=== PATIENT | female | born 1935 | race Hispanic/Latino ===

== ENCOUNTER 2017-05-14 18:42 | Emergency (ER) | payer OTHER ==
[2017-05-14 20:35] LABS: Urine Blood TRACE (NEG); Urine Glucose NEGATIVE (NEG); Urine Protein NEGATIVE (NEG); Urine pH 6.5 (5.0-7.0)
--- NOTE | 2017-05-14 20:39 | ER ---
Nurse's Notes [facility] Name: Jeanette Maloney Age: 82 yrs Sex: Female : 1935 Arrival Date: 05/14/2017 Time: 18:45 Bed 25 Private MD: Diagnosis: Rash and other nonspecific skin eruption-Face;Cough Presentation: 05/14 18:50 Presenting complaint: Patient states: Reports chills since yesterday and woke up with aj rash to face this am. Transition of care: patient was not received from another setting of care. Onset of symptoms was May 14, 2017. Care prior to arrival: None. 18:50 Method Of Arrival: Ambulatory aj 18:50 Acuity: MEAGHAN 3 aj Triage Assessment: 18:54 General: Appears in no apparent distress. comfortable, Behavior is calm, cooperative, aj appropriate for age. Pain: Denies pain. EENT: No signs and/or symptoms were reported regarding the EENT system. Neuro: Level of Consciousness is awake, alert, obeys commands, Oriented to person, place, time, situation. Respiratory: Reports cough that is Airway is patent Respiratory effort is even, unlabored, Respiratory pattern is regular, symmetrical. Derm: Skin is intact, is healthy with good turgor, Skin is pink, warm \T\ dry. normal, Rash noted that is on face. Historical: - Allergies: 18:54 Codeine; aj - Home Meds: 18:54 pravastatin 40 mg oral tab 1 tab once daily [Active]; lisinopril-hydrochlorothiazide aj 20-25 mg oral tab 1 tab once daily [Active]; glimepiride 2 mg Oral tab 1 tab once daily [Active]; metoprolol tartrate 25 mg Oral tab 1 tab 2 times per day [Active]; gabapentin 300 mg oral cap 1 cap 3 times per day [Active]; tramadol 50 mg Oral tab twice a day [Active]; desloratadine 5 mg oral TbDL 1 tab once daily [Active]; aspirin 325 mg Oral tab 1 tab once daily [Active]; - PMHx: 18:54 Hyperlipidemia; Hypertension; Diabetes - NIDDM; aj - PSHx: 18:54 Hysterectomy; aj - Immunization history:: Adult Immunizations up to date. - Social history:: Smoking status: Patient/guardian denies using tobacco. Screenin:20 Abuse screen: Denies threats or abuse. Denies injuries from another. Nutritional kr2 screening: No deficits noted. Tuberculosis screening: No symptoms or risk factors identified. Fall Risk None identified. Assessment: 19:20 General: Appears in no apparent distress. comfortable, well groomed, well developed, kr2 well nourished, Behavior is calm, cooperative, appropriate for age. Pain: Denies pain. Neuro: Level of Consciousness is awake, alert, obeys commands, Oriented to person, place, time, situation. Cardiovascular: Capillary refill < 3 seconds in bilateral fingers Patient's skin is warm and dry. Respiratory: Airway is patent Respiratory effort is even, unlabored, Respiratory pattern is regular, symmetrical. Respiratory: Reports cough that is non-productive. GI: Abdomen is flat, non-distended. : No signs and/or symptoms were reported regarding the genitourinary system. EENT: Nares are clear bilaterally Oral mucosa is moist. Derm: Skin is intact, is healthy with good turgor, Skin is pink, warm \T\ dry. Derm: Rash noted that is red, on face. Musculoskeletal: Circulation, motion, and sensation intact. Vital Signs: 18:54 BP 172 / 69; Pulse 116; Resp 19; Temp 98.9; Pulse Ox 96% on R/A; Weight 81.65 kg; aj Height 4 ft. 11 in. (152 cm); 20:49 BP 142 / 78; Pulse 102; Resp 16; Pulse Ox 97% on R/A; kr2 18:54 Body Mass Index 35.34 (81.65 kg, 152 cm) ED Course: 18:45 Patient arrived in ED. as 18:51 Triage completed. 18:54 Arm band placed on left wrist. Patient placed in an exam room. 18:56 Breezy Fitzpatrick PA is PHCP. 18:57 Anival Aviles MD is Attending Physician. 19:11 Kristina Durham RN is Primary Nurse. kr2 19:20 Flu and/or RSV swab sent to lab. Strep swab sent to lab. kr2 19:30 Patient has correct armband on for positive identification. Placed in gown. Bed in low kr2 position. Call light in reach. Side rails up X 1. Pulse ox on. NIBP on. Door closed. Warm blanket given. Head of bed elevated. 19:46 Patient moved to radiology via wheelchair. ml 19:48 X-ray completed. Patient tolerated procedure well. ml 19:49 XRAY Chest Pa And Lat (2 Views) In Process Unspecified. EDMS 20:48 No provider procedures requiring assistance completed. Patient did not have IV access kr2 during this emergency room visit. Administered Medications: No medications were administered Point of Care Testing: Blood Glucose: 19:18 Blood Glucose: 135 mg/dL; kr2 Ranges: Outcome: 20:38 Discharge ordered by MD. cp 20:48 Discharged to home ambulatory, with family. kr2 20:48 Condition: good 20:48 Discharge instructions given to patient, Instructed on discharge instructions, follow up and referral plans. medication usage, Demonstrated understanding of instructions, follow-up care, medications, Prescriptions given X 2. 20:49 Patient left the ED. kr2 Signatures: Dispatcher [employer] EDMS Valarie Matta, RACHELE RN Marli Gan Melissa ml Breezy Fitzpatrick, Kristina Wright cp RN RN kr2
--- NOTE | 2017-05-14 20:39 | EDPHYS ---
Physician Documentation [facility] Name: Jeanette Maloney Age: 82 yrs Sex: Female : 1935 Arrival Date: 05/14/2017 Time: 18:45 Bed 25 Private MD: ED Physician Anival Aviles HPI: 05/14 19:00 This 82 yrs old Female presents to ER via Ambulatory with complaints of Fever, cp Rash. 19:00 The patient reports fever, not measured (subjective). cp Historical: - Allergies: 18:54 Codeine; aj - Home Meds: 18:54 pravastatin 40 mg oral tab 1 tab once daily [Active]; lisinopril-hydrochlorothiazide aj 20-25 mg oral tab 1 tab once daily [Active]; glimepiride 2 mg Oral tab 1 tab once daily [Active]; metoprolol tartrate 25 mg Oral tab 1 tab 2 times per day [Active]; gabapentin 300 mg oral cap 1 cap 3 times per day [Active]; tramadol 50 mg Oral tab twice a day [Active]; desloratadine 5 mg oral TbDL 1 tab once daily [Active]; aspirin 325 mg Oral tab 1 tab once daily [Active]; - PMHx: 18:54 Hyperlipidemia; Hypertension; Diabetes - NIDDM; aj - PSHx: 18:54 Hysterectomy; aj - Immunization history:: Adult Immunizations up to date. - Social history:: Smoking status: Patient/guardian denies using tobacco. ROS: 19:05 Constitutional: Negative for body aches, chills, fever, poor PO intake. cp 19:05 Eyes: Negative for injury, pain, redness, and discharge. cp 19:05 ENT: Positive for sore throat, Negative for drainage from ear(s), ear pain, difficulty swallowing, difficulty handling secretions. 19:05 Cardiovascular: Negative for chest pain, edema, palpitations. 19:05 Respiratory: Positive for cough, Negative for shortness of breath, wheezing. 19:05 Abdomen/GI: Negative for abdominal pain, nausea, vomiting, and diarrhea, black/tarry stool, rectal bleeding. 19:05 Back: Negative for pain at rest, pain with movement, radiated pain. 19:05 Skin: Positive for rash, of the face. 19:05 Neuro: Negative for altered mental status, headache, weakness. 19:05 All other systems are negative. Exam: 19:12 Constitutional: The patient appears in no acute distress, alert, awake, cp non-diaphoretic, non-toxic, well developed, well nourished. 19:12 Head/face: Exam is negative for obvious evidence of injury or deformity, swelling, cp Noted is rash, that is urticarial. 19:12 Eyes: Periorbital structures: appear normal, Pupils: equal, round, and reactive to light and accomodation, Extraocular movements: intact throughout, Conjunctiva: normal, no exudate, no injection, Sclera: no appreciated abnormality, Lids and lashes: appear normal, bilaterally. 19:12 ENT: External ear(s): are unremarkable, Ear canal(s): are normal, clear, TM's: dullness, bilaterally, Nose: is normal, Mouth: Lips: moist, Oral mucosa: moist, Posterior pharynx: Airway: no evidence of obstruction, patent, Tonsils: no enlargement, no exudate, Uvula: midline, swelling, is not appreciated, erythema, that is mild, exudate, is not appreciated, Voice: is normal. 19:12 Neck: ROM/movement: is normal, is supple, without pain, no range of motions limitations, no nuchal rigidity. 19:12 Chest/axilla: Inspection: normal, Palpation: is normal, no crepitus, no tenderness. 19:12 Cardiovascular: Rate: tachycardic, Rhythm: regular, Edema: is not appreciated, JVD: is not appreciated. 19:12 Respiratory: the patient does not display signs of respiratory distress, Respirations: labored breathing, is not present, intercostal retractions, are absent, shallow respirations, are not present, splinting, is not noted, tachypnea, is not appreciated, Breath sounds: decreased breath sounds, are not appreciated, rhonchi, are not appreciated, stridor, is not appreciated, wheezing: is not appreciated. 19:12 Abdomen/GI: Inspection: abdomen appears normal, Bowel sounds: active, all quadrants, Palpation: abdomen is soft and non-tender, in all quadrants, rebound tenderness, is not appreciated, voluntary guarding, is not appreciated, involuntary guarding, is not appreciated. 19:12 Back: pain, is absent, ROM is normal. 19:12 Skin: cellulitis, is not appreciated, no rash present. 19:12 Neuro: Orientation: to person, place \T\ time. Mentation: is normal, Cerebellar function: is grossly normal, Motor: moves all fours, strength is normal, Sensation: no obvious gross deficits. Vital Signs: 18:54 BP 172 / 69; Pulse 116; Resp 19; Temp 98.9; Pulse Ox 96% on R/A; Weight 81.65 kg; aj Height 4 ft. 11 in. (152 cm); 20:49 BP 142 / 78; Pulse 102; Resp 16; Pulse Ox 97% on R/A; kr2 18:54 Body Mass Index 35.34 (81.65 kg, 152 cm) aj MDM: 18:57 Patient medically screened. 20:36 Data reviewed: vital signs, nurses notes, lab test result(s), radiologic studies, plain cp films. 20:36 Test interpretation: by ED physician or midlevel provider: plain radiologic studies. cp Counseling: I had a detailed discussion with the patient and/or guardian regarding: the historical points, exam findings, and any diagnostic results supporting the discharge/admit diagnosis, lab results, radiology results, the need for outpatient follow up, a family practitioner, to return to the emergency department if symptoms worsen or persist or if there are any questions or concerns that arise at home. 05/14 19:06 Order name: Influenza Screen (a \T\ B); Complete Time: 20:02 05/14 20:02 Interpretation: Reviewed. 05/14 19:06 Order name: Strep; Complete Time: 20:02 05/14 20:03 Interpretation: Reviewed. 05/14 18:57 Order name: Accucheck Blood Glucose; Complete Time: 19:18 05/14 19:06 Order name: XRAY Chest Pa And Lat (2 Views) 05/14 19:41 Order name: Throat Culture [facility] 05/14 20:34 Order name: Urine Dipstick--Ancillary (enter results) em1 05/14 20:13 Order name: Urine Dipstick-Ancillary (obtain specimen); Complete Time: 20:33 cp Administered Medications: No medications were administered Point of Care Testing: Blood Glucose: 19:18 Blood Glucose: 135 mg/dL; kr2 Ranges: Critical Glucose Levels:Adult <50 mg/dl or >400 mg/dl <40 mg/dl or >180 mg/dl Disposition: 21:00 Chart complete. cp Disposition: 05/14/17 20:38 Discharged to Home. Impression: Rash and other nonspecific skin eruption - Face, Cough. - Condition is Stable. - Discharge Instructions: Rash, [id number], Cough, Adult. - Prescriptions for Tessalon Perles 100 mg Oral Capsule - take 1 capsule by ORAL route every 8 hours As needed; 15 capsule. Prednisone 20 mg Oral Tablet - take 2 tablet by ORAL route once daily for 5 days; 10 tablet. - Medication Reconciliation Form, Thank You Letter, Antibiotic Education, Prescription Opioid Use form. - Follow up: Private Physician; When: 2 - 3 days; Reason: Recheck today's complaints. - Problem is new. - Symptoms are unchanged. Addendum: 05/16/2017 06:24 Co-signature as Attending Physician, Anival Aviles MD. g s Signatures: Dispatcher [employer] Valarie Zuluaga, RN RN Breezy Pool, JAIDEN PA Anival Villa MD MD gs Kristina Durham RN RN kr2
--- NOTE | 2017-05-15 09:25 | RAD REPORT ---
EXAM DESCRIPTION: RAD - Chest Pa And Lat (2 Views) - 05/14/2017 7:51 pm CLINICAL HISTORY: Cough, fever COMPARISON: None. TECHNIQUE: PA and lateral views of the chest were obtained. FINDINGS: The lungs are clear of a focal mass, infiltrate or failure finding. Interstitial markings are mildly prominent with the baseline unknown. Heart size is normal and central vasculature is wit hin normal limits. No pleural effusion or pneumothorax seen. No acute bony finding noted. No aorti c abnormality. IMPRESSION: Mild prominence of the interstitial markings on baseline examination. Minimal interstitial edema or infiltrate cannot be distinguished from chronic interstitial lung disea se. No mass, consolidation or failure.
== END 2017-05-14 20:49 | disposition home or self-care (01) ==
LOC: ER 18:42
DX: R21 Rash and other nonspecific skin eruption (principal); I10 Essential (primary) hypertension; E11.9 Type 2 diabetes mellitus without complications; E78.5 Hyperlipidemia, unspecified; Z79.82 Long term (current) use of aspirin
CPT/HCPCS: 71046; 81003; 82962; 87070; 87081; 87804; 99284